=== PATIENT | male | born 2000 | race Caucasian/White ===

== ENCOUNTER 2018-05-25 18:33 | Inpatient (IN) ==
[2018-05-26] MEDS: Morphine Inj 4 MG/ML Vial IV.PUSH PRN ×4 (05:41→20:35)
[2018-05-26] MEDS ORDERED: Lidocaine 1%/Epinephrine 1:100,000 Inj 30 ML Vial ONE (07:13)
[2018-05-26] MEDS ORDERED: Thrombin Topical Soln 5,000 UNIT Vial TOPICAL ONE (07:13)
[2018-05-26] MEDS ORDERED: Gelatin Size 100 Topical Foam ONE (07:13)
[2018-05-26] MEDS ORDERED: Propofol Inj 500 MG/50 ML Vial ONE (07:24)
[2018-05-26] MEDS ORDERED: HYDROmorphone PF Inj 2 MG/ML Vial ONE ×2 (07:25→08:21)
--- NOTE | 2018-05-26 07:27 | P.CONNS ---
History of Present Illness Service: Trauma Alligator Primary Care Provider: UNKNOWN Chief Complaint: Trampoline, C6/7 jumped facet History of Present Illness: 17yoM doing backflips on trampoline last evening 6pm, when he felt a pop and crack with tingling/burning down right arm. Pain has improved with morphine, feels weak in right arm but subjectively is baseline strong. Imaging shows C6/ 7 jumped facet with a fracture. Plan for surgery this 8AM. Has been maintained in spine precautions since arrival this morning at 4:45, delayed due to multiple traumas last evening. [facility] - History History Provided By: Patient - Medical History Medical History: Medical History (Last Updated 05/25/18 @ 18:45 by Pari Sanz, RN) Patient denies medical problems - Surgical History Surgical History: Surgical History (Last Updated 05/25/18 @ 18:45 by Pari Sanz, TORI) H/O knee surgery - Tobacco History Second Hand Smoke Exposure: Yes Tobacco Use In Past 30 Days: Yes Smoking Status: Light tobacco smoker Tobacco Type: Cigarettes, Cigars, E-Cigarettes - Alcohol History How Often Do You Have a Drink Containing Alcohol: 2 to 4 times a month - Substance Use History Substance History: Active Abuse - Substance Use Type Marijuana Status: Active Route Used: Inhalation Frequency: casual daily smoking Reason for Use: Calm Down, Feels Good, Get High Comment: Patient ask that this information not be shared with parents. - Travel History Recent Travel in the [place] Within the Last 8 Weeks: No Recent Travel Out of the Country Within the Last 8 Weeks: No - Immunization History Tetanus Immunization: <5 Years Hx Influenza Vaccine This Season: Yes Medications and Allergies Active Medications: Active Medications Morphine Sulfate (Morphine Inj) 2 mg IV.PUSH Q1H PRN PRN Reason: PAIN 1-10 Last Admin: 05/26/18 05:41 Dose: 2 mg Allergies Allergy/AdvReac Type Severity Reaction Status Date / Time Penicillins Allergy Severe Itching, Verified 05/25/18 18:44 Generalized Home Medications Medication Instructions Recorded Confirmed Type No Known Home Medications 05/25/18 05/25/18 History Exam Vital signs: Vital Signs 05/26/18 04:46 05/26/18 05:00 05/26/18 06:00 Temperature 98.3 F Pulse Rate 58 L 58 L 54 L Respiratory Rate 26 H 21 20 Blood Pressure 133/80 Pulse Oximetry 97 98 97 Intake & Output 05/25/18 05/26/18 05/26/18 18:59 06:59 18:59 Intake Total 0 / 0 Balance 0 / 0 Weight 67.6 kg Intake: Oral 0 / 0 Other: Date of Last Bowel Movement 05/25/18 Weight On Admission 67.6 kg Narrative: A&O x 3 CN II-XII intact Motor 5/5 UE/LE sensation intact throughout Assessment and Plan - Plan 17yoM with C6/7 jumped facet unilateral (right) with fracture and rotatory subluxation. Plan: Posterior cervical decompression and fusion in traction on a horseshoe. Monitoring, Cognitive Kinetics aware Discussed with mother and patient risks of surgery including paralysis and weakness of right arm. Consented
[2018-05-26] MEDS ORDERED: Acetaminophen 325 MG Tablet PO PRN (08:00)
--- NOTE | 2018-05-26 08:07 | P.CONCC ---
History of Present Illness Service: Critical care medicine Consult date: 05/26/18 Requesting Physician: Bo Ruiz Reason for Consult: Acute neurological injury Primary Care Provider: UNKNOWN Chief Complaint: Trampoline, C6/7 jumped facet History of Present Illness: This 17-year-old man was playing with some of his friends on a trampoline when he flipped incorrectly and landed directly on his head. He felt something "pop " at the time and developed severe pain radiating down his right arm to his right index finger. This pain is waxed and wane and on my examination he is already received some analgesia. Additionally, he developed severe right posterior lateral rib pain which has persisted. Plain film x-rays of the chest shows fully expanded lungs without pneumothorax and no evidence of rib fractures. He has been hemodynamically stable and his lab studies are normal with the exception of a minimally elevated creatinine at 1.1. There was no loss of consciousness with the injury and oriented throughout. He was transferred from the [facility] emergency department to the intensive surgical care unit at the [facility] earlier this morning. I have discussed the injury with the patient and his mother at the bedside. Hct 44, INR 1.1, Plts 348,000. Review of Systems Patient complains of numbness involving his right index finger and pain shooting down his right arm which has been alleviated minimally with analgesia. He still complains of right posterior lateral rib pain. No shortness of breath except it does hurt his ribs to take a deep breath or cough. [facility] - History History Provided By: Patient - Medical History Medical History: Medical History (Last Updated 05/25/18 @ 18:45 by Pari Sanz RN) Patient denies medical problems - Surgical History Surgical History: Surgical History (Last Updated 05/25/18 @ 18:45 by Pari Sanz RN) H/O knee surgery - Tobacco History Second Hand Smoke Exposure: Yes Tobacco Use In Past 30 Days: Yes Smoking Status: Light tobacco smoker Tobacco Type: Cigarettes, Cigars, E-Cigarettes - Alcohol History How Often Do You Have a Drink Containing Alcohol: 2 to 4 times a month - Substance Use History Substance History: Active Abuse - Substance Use Type Marijuana Status: Active Route Used: Inhalation Frequency: casual daily smoking Reason for Use: Calm Down, Feels Good, Get High Comment: Patient ask that this information not be shared with parents. - Travel History Recent Travel in the [place] Within the Last 8 Weeks: No Recent Travel Out of the Country Within the Last 8 Weeks: No - Immunization History Tetanus Immunization: <5 Years Hx Influenza Vaccine This Season: Yes Medications and Allergies Active Medications: Active Medications Morphine Sulfate (Morphine Inj) 2 mg IV.PUSH Q1H PRN PRN Reason: PAIN 1-10 Last Admin: 05/26/18 07:27 Dose: 2 mg Allergies Allergy/AdvReac Type Severity Reaction Status Date / Time Penicillins Allergy Severe Itching, Verified 05/25/18 18:44 Generalized Home Medications Medication Instructions Recorded Confirmed Type No Known Home Medications 05/25/18 05/25/18 History Physical Exam Vital signs: Vital Signs 05/26/18 04:46 05/26/18 05:00 05/26/18 06:00 Temperature 98.3 F Pulse Rate 58 L 58 L 54 L Respiratory Rate 26 H 21 20 Blood Pressure 133/80 Pulse Oximetry 97 98 97 05/26/18 06:21 05/26/18 07:00 Temperature Pulse Rate 50 L 55 L Respiratory Rate 15 20 Blood Pressure 121/74 128/79 Pulse Oximetry 97 99 Intake & Output 05/25/18 05/26/18 05/26/18 18:59 06:59 18:59 Intake Total 0 / 0 Balance 0 / 0 Weight 67.6 kg Intake: Oral 0 / 0 Other: Date of Last Bowel Movement 05/25/18 Weight On Admission 67.6 kg Narrative: General: Fully alert 17-year-old male in moderate distress from pain Head: Normal Neck: In cervical collar. Airway is widely patent with no obstructive noises Lungs: Clear bilaterally without wheezes or crackles. Comfortable respiratory pattern. Heart: Normal S1-S2, regular rate and rhythm, no murmur or rub, no JVD Abdomen: Soft, nontender, nondistended, no peritoneal irritation, no guarding, bowel sounds are active. Extremities: Without deformity. Warm, well-perfused. Neurological: Patient is alert and oriented x3 speech is clear and he is conversant. He moves 4 limbs to command and wiggles individual toes and fingers to command. Strength is 5/5 in legs. Hand grasp left hand 5/5, hand grasp right hand 4/5, limited by pain. Decreased sensation right index finger. Assessment and Plan - Assessment and Plan Plan: Assessment: 1. C6/C7 cervical spine injury, jumped facet. 2. Paresthesia right hand. Plan: 1. Hard cervical collar neck immobilization 2. Maintenance IV isotonic crystalloid 3. Pepcid for GI ulcer prophylaxis 4. Hold chemical DVT prophylaxis at this time because of need for surgical intervention 5. SCDs 6. Serial neurologic exam Overall impression: This gentleman is critically ill with an unstable cervical spine fracture and evidence of neurologic injury involving the right hand. The mechanism of injury is such that we do not suspect intra-abdominal injury or injuries remote from the neck but we will continue to survey for other problems. By my exam and review there is no reason he cannot go immediately to the operating room now for reduction and stabilization of his C6/C7 spine disruption. Critical care time 45 minutes including lengthy discussion with patient and his mother.
[2018-05-26] MEDS ORDERED: ceFAZolin 2 GM Premix Inj 2 GM/50 ML PIGGYBACK IV.SIG ONE (09:15)
--- NOTE | 2018-05-26 09:52 | MH ---
cc: Ayaz Patton MD DATE OF ADMISSION: 05/26/2018 CHIEF COMPLAINT: C6-C7 injury, trauma transfer from [place]. HISTORY OF PRESENT ILLNESS: The patient is a 17-year-old male, who was at a trampoline park, when he landed directly on his head after jumping on a trampoline. The patient said he felt something pop, and had severe pain radiating down his right arm at that time. The patient was transferred to [facility], and underwent evaluation including a CT scan of the neck, which did show a C6-C7 fracture/dislocation that was felt to be unstable. The patient was accepted by Dr. Ruiz of neurosurgery to be transferred to [facility] for evaluation, management, and likely urgent operative repair. The patient was transferred in a cervical collar and bedrest. Critical care was consulted. Trauma surgery service was asked to admit the patient. REVIEW OF SYSTEMS: The patient complains of numbness involving the right index finger and down his right arm, which has improved since admission. PAST SURGICAL HISTORY: None. PAST MEDICAL HISTORY: History of knee surgery. PAST MEDICAL HISTORY: None. ALLERGIES: PENICILLINS. HOME MEDICATIONS: None. SOCIAL HISTORY: Occasionally smokes cigarettes, occasionally uses marijuana, occasionally uses alcohol. FAMILY HISTORY: Reviewed in the chart, noncontributory. PHYSICAL EXAMINATION: VITAL SIGNS: Temperature 93.8 degrees, pulse rate 58, blood pressure 133/80, O2 saturation 97%. GENERAL: The patient is a thin, male in no acute distress. HEENT: Head is normocephalic, atraumatic. Pupils are round and reactive to light. Sclerae are anicteric. Oral cavity is clear. Mid face is stable. NECK: Cervical collar is in place. Trachea is midline. CHEST: Chest wall stable without deformity. Bilateral breath sounds clear to auscultation bilaterally. HEART: Regular rate and rhythm. No murmurs. ABDOMEN: Soft and nontender to palpation. No organomegaly. No ascites. No seatbelt sign. PELVIC: Stable without deformity. EXTREMITIES: No deformity in 4 extremities, warm and perfused, intact Peripheral pulses intact. BACK: No thoracic or lumbar tenderness. NEUROLOGIC: The patient is GCS 15. Awake, alert and oriented, moving all extremities equally without deficit. He has sensation and motor intact x4 extremities. Cranial nerves are grossly intact. LABORATORY DATA: Hemoglobin 14.5. IMAGING: A CT scan of the patient's cervical spine does show a fracture/dislocation at C6-C7. IMPRESSION AND PLAN: The patient is a 17-year-old male, status post unstable cervical spine fracture, neurologically intact. The patient is proceeding to the operating room urgently this morning with Dr. Ruiz for stabilization of his fracture. We will continue supportive care and appropriate analgesic control, as well as occupational therapy and physical therapy for continued rehabilitation. Also discharge planning. After discussion with Dr. Ruiz, the patient will have a halo in place for likely a few months, and will need appropriate case-management input for assistance after discharge. Ayaz Patton MD AWG/rh , 09:14 AM , 09:22 AM
[2018-05-26] MEDS ORDERED: fentaNYL Citrate Inj 100 MCG/2 ML Ampul ONE (11:18)
[2018-05-26] MEDS: Docusate Sodium 100 MG Capsule PO SCH ×2 (11:24→20:35)
[2018-05-26] MEDS: Pantoprazole Inj 40 MG Vial IV.PUSH SCH (11:24)
--- NOTE | 2018-05-26 11:51 | XR ---
EXAM DATE: 05/26/2018 11:47 AM EST AGE/SEX: 17 years / Male INDICATIONS: Post-op C4 to T2 posterior cervical fusion. CLINICAL DATA: This is the patient's subsequent encounter. Patient reports that signs and symptoms h ave been present for 2 days and indicates a pain score of Nonresponsive. MEDICAL/SURGICAL HISTORY: Non-responsive. Non-responsive. COMPARISON: No prior exams available for comparison. CONCLUSION: Fluoroscopic images during posterior fusion C4 extending inferiorly into the upper thoracic spine at T2 level. Electronically signed by: Nicko Marsh MD Board Certified Radiologist 05/26/2018 11:50 AM EST
--- NOTE | 2018-05-26 15:35 | P.PNCC ---
Subjective Brief History: The patient is a 17-year-old male, who was at a trampoline park, when he landed directly on his head after jumping on a trampoline. The patient said he felt something pop, and had severe pain radiating down his right arm. On the scene, apparently his friends tried to twist his neck and "pop" it back in place. Patient was admitted through [place] [facility] evaluated found to have C6-C7 locked facet with fracture that was deemed unstable and therefore is transferred to our institution for further care. Patient is evaluated by neurosurgery and is taken to the operating room for cervical fusion 24 Hour Review/Hospital Course: 05/26/2018 Patient status post cervical instrumentation for C6-C7 jumped facet. Patient is awake alert oriented Neurologically grossly intact he does not have any radiating pain and has bilateral equal motoric strength 5 out of 5 in the arms and 5 out of 5 in the legs. Normal bilateral executive sales manager and no lateralization Normal deep tendon reflexes no pathologic reflexes Hemodynamically stable Bilateral breath sounds Plan Advance to diet Activity as tolerated with aggressive PT OT Do not administer anticoagulants even prophylactically at this time Adjust pain medication regimen Objective Vital Signs / I&O: Vital Signs 05/26/18 04:46 05/26/18 05:00 05/26/18 06:00 Temperature 98.3 F Pulse Rate 58 L 58 L 54 L Respiratory Rate 26 H 21 20 Blood Pressure 133/80 Pulse Oximetry 97 98 97 05/26/18 06:21 05/26/18 07:00 05/26/18 11:00 Temperature Pulse Rate 50 L 55 L 76 Respiratory Rate 15 20 16 Blood Pressure 121/74 128/79 129/59 L Pulse Oximetry 97 99 100 05/26/18 12:25 05/26/18 12:45 05/26/18 13:00 Temperature 97.5 F L Pulse Rate 83 76 70 Respiratory Rate 14 9 L 17 Blood Pressure 121/66 119/64 113/62 Pulse Oximetry 100 100 100 05/26/18 13:15 05/26/18 13:30 05/26/18 13:45 Temperature 97.7 F Pulse Rate 73 66 69 Respiratory Rate 12 18 16 Blood Pressure 115/60 109/55 L 111/62 Pulse Oximetry 95 92 L 96 Intake & Output 05/25/18 05/26/18 05/26/18 18:59 06:59 18:59 Intake Total 0 / 0 1550 / 1550 Output Total 1300 / 1300 Balance 0 / 0 250 / 250 Weight 67.6 kg Intake: IV 50 / 50 Ancef 2 GM Premix Inj 2 gm In 50 / 50 50 ml @ 100 mls/hr IV.SIG ONCE ONE Rx#:[id number] Oral 0 / 0 Anesthesia Amount 1500 / 1500 Output: Estimated Blood Loss 200 / 200 Urine Amount (Catheter) 1100 / 1100 Indwelling Urethral Catheter 1100 / 1100 Other: Date of Last Bowel Movement 05/25/18 05/25/18 Weight On Admission 67.6 kg Imaging: Impressions Cervical Spine X-Ray 05/26/18 00:00 CONCLUSION: Fluoroscopic images during posterior fusion C4 extending inferiorly into the upper thoracic spine at T2 level. Assessment and Plan Attestation: Critical care time 32 minutes
--- NOTE | 2018-05-26 15:46 | P.OP ---
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 Procedure: Patient brought to [facility] OR and the procedure done under general anesthesia. He was placed in [place] 3-pin headrest, then turned carefully after taking baseline SSEPs. Head fixated in three-pin fixation, all pressure points padded. SSEP/MEPs stable and intact. Posterior neck clipped then prepped and draped in usual sterile fashion. Incision taken from C4 to T2 down the spinous processes with a subperiosteal dissection bilaterally to the facets. Right C6/ 7 jumped facet located. Screws placed (pedicle screws: T1 26mm, T2 28mm placed using AP fluoro, then confirmed with lateral views and left C4-5-6 lateral mass screws of 12mm and right C4-5 lateral mass screws placed). Right C6 laminar fracture elevated and superior facet of C7 on right drilled and removed to facilitate reduction of fracture. This was stabilized with 2, 90mm rods which were secured with set screws and final tightened. Wound copiously irrigated with antibiotic irrigation, then closed in layers over a 7-flat channel drain using 0 and 2-0 Vicryl for deep fascia, and inverted 3-0 Vicryl for subcutaneous followed by fam for skin. Sterile dressings applied. Patient taken out of pins, returned supine in stable condition. All monitoring remained intact throughout the procedure. There were no periprocedural complications. All sponge and needle counts correct. Dr. Ruiz present and scrubbed for entire procedure. Patient taken extubated to recovery where he was found to move all extremities with full strength.
--- NOTE | 2018-05-26 21:46 | CT ---
EXAM DATE: 05/26/2018 9:20 PM EST AGE/SEX: 17 years / Male INDICATIONS: Check alignment after hardware fixation. CLINICAL DATA: This is the patient's initial encounter. Patient reports that signs and symptoms have been present for 2 days and indicates a pain score of 7/10. MEDICAL/SURGICAL HISTORY: . C6-C7 fracture. . Fixator. RADIATION DOSE: 22.52 CTDI (mGy) COMPARISON: [facility], CT CERVICAL SPINE W/O CONTRAST, 05/25/2018. . TECHNIQUE: Contiguous axial images were obtained using helical multirow detector technique. The vol umetric data was post-processed with multiplanar reconstruction in oblique axial, sagittal, and coron al planes. Using automated exposure control and adjustment of the mA and/or kV according to patient s ize, radiation dose was kept as low as reasonably achievable to obtain optimal diagnostic quality hannah ges. DICOM format image data is available electronically for review and comparison. FINDINGS: There is posterior fusion with screws in C4 and C5 posteriorly and T1 and T2 posteriorly together wit h bilateral jose fixation between these levels. The previous spondylolisthesis at C6-7 has been reduce d. Posterior element fractures are again noted predominantly on the right. A drain is present in the soft tissues together with some soft tissue air presumably related to recent surgery. CONCLUSION: 1. Posterior fixation as above. Interval reduction of anterolisthesis seen previously at C6-7. Jumpe d facet has also been reduced. Again seen are posterior element fractures at C6-7. Electronically signed by: Javon Wei MD Board Certified Radiologist 05/26/2018 9:45 PM EST
[2018-05-27 03:52] LABS: Baso % (Auto) 0.2 % (0.0-2.0); Eos % (Auto) 0.1 % (0.0-4.0); Hematocrit 34.3 % (39.0-51.0); Hemoglobin 11.7 gm/dL (13.0-17.0); Lymph # (Auto) 1.9 th/mm3 (1.0-4.8); Lymph % (Auto) 18.8 % (9.0-44.0); Mean Corpuscular HGB Conc 34.1 % (32.0-36.0); Mean Corpuscular Hemoglobin 29.3 pg (27.0-34.0); Mean Corpuscular Volume 85.7 fL (80.0-100.0); Mean Platelet Volume 8.5 fL (7.0-11.0); Mono # (Auto) 1.4 th/mm3 (0.0-0.9); Neut # (Auto) 6.6 th/mm3 (1.8-7.7); Neut % (Auto) 66.9 % (16.0-70.0); Platelet Count 285 th/mm3 (150-450); Red Cell Distribution Width 12.8 % (11.6-17.2); White Blood Count 9.9 th/mm3 (4.0-11.0)
[2018-05-27] MEDS ORDERED: Chlorhexidine Gluconate 2% 1 Pack (2 Cloths) TOPICAL PRN (04:00)
[2018-05-27 04:15] LABS: Albumin 3.4 g/dL (3.4-5.0); Anion Gap 6 meq/L (5-15); Aspartate Aminotransferase 21 U/L (15-39); Blood Urea Nitrogen 9 mg/dL (7-18); Calcium 8.2 mg/dL (8.5-10.1); Carbon Dioxide 29.4 meq/L (21.0-32.0); Chloride 107 meq/L (98-107); Glomerular Filtration Rate Greater Than 89 mL/min (>89); Glucose,Random 113 mg/dL (74-106); Potassium 4.2 meq/L (3.5-5.1); Sodium 142 meq/L (136-145)
[2018-05-27 04:18] LABS: Alanine Aminotransferase 14 U/L (9-52); Alkaline Phosphatase 52 U/L (45-117); Total Protein 6.1 g/dL (6.4-8.2)
[2018-05-27] MEDS: Chlorhexidine Gluconate 2% 1 Pack (2 Cloths) TOPICAL SCH (05:07)
[2018-05-27] MEDS: Morphine Inj 4 MG/ML Vial IV.PUSH PRN ×2 (05:42→23:19)
--- NOTE | 2018-05-27 07:28 | P.PNCC ---
Subjective Subjective Remarks/Hospital Course: This 17-year-old man was playing with some of his friends on a trampoline when he flipped incorrectly and landed directly on his head. He felt something "pop " at the time and developed severe pain radiating down his right arm to his right index finger. This pain is waxed and wane and on my examination he is already received some analgesia. Additionally, he developed severe right posterior lateral rib pain which has persisted. Plain film x-rays of the chest shows fully expanded lungs without pneumothorax and no evidence of rib fractures. He has been hemodynamically stable and his lab studies are normal with the exception of a minimally elevated creatinine at 1.1. There was no loss of consciousness with the injury and oriented throughout. He was transferred from the [facility] emergency department to the intensive surgical care unit at the [facility] earlier this morning. I have discussed the injury with the patient and his mother at the bedside. Hct 44, INR 1.1, Plts 348,000. 05/27: Status post C4-T2 fusion for repair of C6/C7 facet jump injury. Extubated following surgery and airway widely patent. Some persistent defect and sensation right index finger. Rib pain when taking a deep breath. Swallowing well, protects airway. Objective Vital Signs / I&O: Vital Signs 05/26/18 08:00 05/26/18 08:04 05/26/18 11:00 Temperature Pulse Rate 58 L 61 76 Respiratory Rate 26 H 22 16 Blood Pressure 131/89 129/59 L Pulse Oximetry 100 100 100 05/26/18 12:04 05/26/18 12:05 05/26/18 12:25 Temperature 97.5 F L Pulse Rate 77 83 Respiratory Rate 14 Blood Pressure 113/57 L 121/66 Pulse Oximetry 100 100 05/26/18 12:30 05/26/18 12:45 05/26/18 13:00 Temperature Pulse Rate 77 76 68 Respiratory Rate 13 9 L 30 H Blood Pressure 116/60 119/64 113/62 Pulse Oximetry 100 100 100 05/26/18 13:01 05/26/18 13:15 05/26/18 13:30 Temperature Pulse Rate 97 H 71 67 Respiratory Rate 20 13 16 Blood Pressure 113/62 115/60 109/55 L Pulse Oximetry 100 94 L 92 L 05/26/18 13:45 05/26/18 14:00 05/26/18 14:15 Temperature 97.7 F Pulse Rate 67 70 65 Respiratory Rate 13 0 L 0 L Blood Pressure 111/62 115/66 106/62 Pulse Oximetry 95 96 94 L 05/26/18 14:30 05/26/18 14:45 05/26/18 15:00 Temperature Pulse Rate 66 63 63 Respiratory Rate 0 L 0 L 0 L Blood Pressure 114/66 113/63 108/55 L Pulse Oximetry 95 94 L 95 05/26/18 15:15 05/26/18 15:30 05/26/18 15:45 Temperature 98.0 F Pulse Rate 61 60 60 Respiratory Rate 0 L 11 L 11 L Blood Pressure 105/58 L 106/59 L 103/64 Pulse Oximetry 95 95 95 05/26/18 16:00 05/26/18 16:15 05/26/18 16:30 Temperature Pulse Rate 90 58 L 68 Respiratory Rate 22 22 14 Blood Pressure 113/63 112/69 112/69 Pulse Oximetry 97 97 97 05/26/18 16:45 05/26/18 17:00 05/26/18 17:15 Temperature Pulse Rate 59 L 60 58 L Respiratory Rate 49 H 74 H 106 H Blood Pressure 118/66 112/63 114/65 Pulse Oximetry 98 97 97 05/26/18 17:30 05/26/18 17:45 05/26/18 18:00 Temperature Pulse Rate 64 55 L 58 L Respiratory Rate 60 H 62 H 32 H Blood Pressure 116/68 115/68 117/72 Pulse Oximetry 97 97 97 05/26/18 18:15 05/26/18 18:30 05/26/18 19:00 Temperature Pulse Rate 63 80 82 Respiratory Rate 39 H 137 H 110 H Blood Pressure 118/72 125/79 160/94 H Pulse Oximetry 98 100 98 05/26/18 19:15 05/26/18 19:30 05/26/18 20:00 Temperature 98.2 F Pulse Rate 76 80 84 Respiratory Rate 92 H 114 H 24 Blood Pressure 131/74 134/77 123/69 Pulse Oximetry 100 98 99 05/26/18 20:26 05/26/18 20:41 05/26/18 21:00 Temperature Pulse Rate 71 66 Respiratory Rate 20 23 21 Blood Pressure 118/65 Pulse Oximetry 98 97 05/26/18 21:15 05/26/18 21:26 05/26/18 22:00 Temperature Pulse Rate 75 80 Respiratory Rate 23 25 H 19 Blood Pressure 126/77 Pulse Oximetry 99 98 05/26/18 22:26 05/26/18 23:00 05/26/18 23:26 Temperature Pulse Rate 83 71 65 Respiratory Rate 18 20 23 Blood Pressure 119/70 110/57 L Pulse Oximetry 98 97 97 05/27/18 00:00 05/27/18 00:26 05/27/18 01:00 Temperature 98.4 F Pulse Rate 71 65 66 Respiratory Rate 21 30 H 25 H Blood Pressure 108/57 L Pulse Oximetry 97 96 96 05/27/18 01:26 05/27/18 02:00 05/27/18 02:26 Temperature Pulse Rate 64 64 62 Respiratory Rate 27 H 23 20 Blood Pressure 102/51 L 108/54 L Pulse Oximetry 95 96 97 05/27/18 02:40 05/27/18 03:00 05/27/18 03:26 Temperature Pulse Rate 62 62 Respiratory Rate 24 20 20 Blood Pressure 107/60 Pulse Oximetry 96 98 05/27/18 04:00 05/27/18 04:26 05/27/18 05:00 Temperature 98.1 F Pulse Rate 74 73 61 Respiratory Rate 32 H 24 20 Blood Pressure 116/64 Pulse Oximetry 100 100 97 05/27/18 05:07 Temperature Pulse Rate Respiratory Rate 24 Blood Pressure Pulse Oximetry Intake & Output 05/26/18 05/27/18 05/27/18 18:59 06:59 18:59 Intake Total 1550 / 1550 891 / 891 Output Total 1670 / 1670 Balance -120 / -120 891 / 891 Intake: IV 50 / 50 891 / 891 NS + KCl 20 mEq Inj 1,000 ML @ 891 / 891 100 mls/hr IV.CONT .Q10H YVONNE Rx #:[id number] Ancef 2 GM Premix Inj 2 gm In 50 / 50 50 ml @ 100 mls/hr IV.SIG ONCE ONE Rx#:[id number] Anesthesia Amount 1500 / 1500 Output: Estimated Blood Loss 200 / 200 Urine Amount (Catheter) 1400 / 1400 Indwelling Urethral Catheter 1400 / 1400 Wound Drainage 70 / 70 # 1 Back 70 / 70 Other: Date of Last Bowel Movement 05/25/18 05/25/18 Result Diagrams: 05/27/18 03:19 05/27/18 03:19 Objective Remarks: Narrative: General: Alert 17-year-old male Head: Normal Neck: In hard cervical collar. Airway is widely patent with no obstructive noises Lungs: Clear bilaterally without wheezes or crackles. Comfortable respiratory pattern, restricted minimally by rib pain. Heart: Normal S1-S2, regular rate and rhythm, no murmur or rub, no JVD Abdomen: Soft, nontender, nondistended, no peritoneal irritation, no guarding, bowel sounds are present. Extremities: Without deformity. Warm, well-perfused. Neurological: Patient is alert and oriented x3 speech is clear and he is conversant. He moves 4 limbs to command and wiggles individual toes and fingers to command. Some residual numbness right index finger. Assessment and Plan - Assessment and Plan Plan: Assessment: 1. C6/C7 cervical spine injury, jumped facet -> C4-T2 spinal fusion 2. Paresthesia right hand. Plan: 1. Hard cervical collar neck immobilization 2. Maintenance IV isotonic crystalloid, advance diet 3. Pepcid for GI ulcer prophylaxis 4. Chemical DVT prophylaxis per neurosurgical service 5. SCDs 6. Serial neurologic exam 7. Mobilization with physical therapy Overall impression: This gentleman is critically ill with an unstable cervical spine fracture and evidence of neurologic injury involving the right hand. The mechanism of injury is such that we do not suspect intra-abdominal injury or injuries remote from the neck but we will continue to survey for other problems. He is status post cervical spine repair with stable hemodynamics and respiratory function.
[2018-05-27] MEDS: Pantoprazole Inj 40 MG Vial IV.PUSH SCH (08:21)
[2018-05-27] MEDS: Docusate Sodium 100 MG Capsule PO SCH ×2 (08:22→20:27)
--- NOTE | 2018-05-27 11:10 | P.PNNS ---
Subjective Interval history: 17-year-old man was playing with some of his friends on a trampoline when he flipped incorrectly and landed directly on his head. He felt something "pop" at the time and developed severe pain radiating down his right arm to his right index finger. This pain is waxed and wane and on my examination he is already received some analgesia. Additionally, he developed severe right posterior lateral rib pain which has persisted. Plain film x-rays of the chest shows fully expanded lungs without pneumothorax and no evidence of rib fractures. He has been hemodynamically stable and his lab studies are normal with the exception of a minimally elevated creatinine at 1.1. There was no loss of consciousness with the injury and oriented throughout. He was transferred from the [facility] emergency department to the intensive surgical care unit at the [facility] earlier this morning. I have discussed the injury with the patient and his mother at the bedside. Hct 44, INR 1.1, Plts 348,000. 05/27: Status post C4-T2 fusion for repair of C6/C7 facet jump injury. Extubated following surgery Douing well some right shoulder pain overnight Physical Exam Vital signs: Vital Signs 05/26/18 12:04 05/26/18 12:05 05/26/18 12:25 Temperature 97.5 F L Pulse Rate 77 83 Respiratory Rate 14 Blood Pressure 113/57 L 121/66 Pulse Oximetry 100 100 05/26/18 12:30 05/26/18 12:45 05/26/18 13:00 Temperature Pulse Rate 77 76 68 Respiratory Rate 13 9 L 30 H Blood Pressure 116/60 119/64 113/62 Pulse Oximetry 100 100 100 05/26/18 13:01 05/26/18 13:15 05/26/18 13:30 Temperature Pulse Rate 97 H 71 67 Respiratory Rate 20 13 16 Blood Pressure 113/62 115/60 109/55 L Pulse Oximetry 100 94 L 92 L 05/26/18 13:45 05/26/18 14:00 05/26/18 14:15 Temperature 97.7 F Pulse Rate 67 70 65 Respiratory Rate 13 0 L 0 L Blood Pressure 111/62 115/66 106/62 Pulse Oximetry 95 96 94 L 05/26/18 14:30 05/26/18 14:45 05/26/18 15:00 Temperature Pulse Rate 66 63 63 Respiratory Rate 0 L 0 L 0 L Blood Pressure 114/66 113/63 108/55 L Pulse Oximetry 95 94 L 95 05/26/18 15:15 05/26/18 15:30 05/26/18 15:45 Temperature 98.0 F Pulse Rate 61 60 60 Respiratory Rate 0 L 11 L 11 L Blood Pressure 105/58 L 106/59 L 103/64 Pulse Oximetry 95 95 95 05/26/18 16:00 05/26/18 16:15 05/26/18 16:30 Temperature Pulse Rate 90 58 L 68 Respiratory Rate 22 22 14 Blood Pressure 113/63 112/69 112/69 Pulse Oximetry 97 97 97 05/26/18 16:45 05/26/18 17:00 05/26/18 17:15 Temperature Pulse Rate 59 L 60 58 L Respiratory Rate 49 H 74 H 106 H Blood Pressure 118/66 112/63 114/65 Pulse Oximetry 98 97 97 05/26/18 17:30 05/26/18 17:45 05/26/18 18:00 Temperature Pulse Rate 64 55 L 58 L Respiratory Rate 60 H 62 H 32 H Blood Pressure 116/68 115/68 117/72 Pulse Oximetry 97 97 97 05/26/18 18:15 05/26/18 18:30 05/26/18 19:00 Temperature Pulse Rate 63 80 82 Respiratory Rate 39 H 137 H 110 H Blood Pressure 118/72 125/79 160/94 H Pulse Oximetry 98 100 98 05/26/18 19:15 05/26/18 19:30 05/26/18 20:00 Temperature 98.2 F Pulse Rate 76 80 84 Respiratory Rate 92 H 114 H 24 Blood Pressure 131/74 134/77 123/69 Pulse Oximetry 100 98 99 05/26/18 20:26 05/26/18 20:41 05/26/18 21:00 Temperature Pulse Rate 71 66 Respiratory Rate 20 23 21 Blood Pressure 118/65 Pulse Oximetry 98 97 05/26/18 21:15 05/26/18 21:26 05/26/18 22:00 Temperature Pulse Rate 75 80 Respiratory Rate 23 25 H 19 Blood Pressure 126/77 Pulse Oximetry 99 98 05/26/18 22:26 05/26/18 23:00 05/26/18 23:26 Temperature Pulse Rate 83 71 65 Respiratory Rate 18 20 23 Blood Pressure 119/70 110/57 L Pulse Oximetry 98 97 97 05/27/18 00:00 05/27/18 00:26 05/27/18 01:00 Temperature 98.4 F Pulse Rate 71 65 66 Respiratory Rate 21 30 H 25 H Blood Pressure 108/57 L Pulse Oximetry 97 96 96 05/27/18 01:26 05/27/18 02:00 05/27/18 02:26 Temperature Pulse Rate 64 64 62 Respiratory Rate 27 H 23 20 Blood Pressure 102/51 L 108/54 L Pulse Oximetry 95 96 97 05/27/18 02:40 05/27/18 03:00 05/27/18 03:26 Temperature Pulse Rate 62 62 Respiratory Rate 24 20 20 Blood Pressure 107/60 Pulse Oximetry 96 98 05/27/18 04:00 05/27/18 04:26 05/27/18 05:00 Temperature 98.1 F Pulse Rate 74 73 61 Respiratory Rate 32 H 24 20 Blood Pressure 116/64 Pulse Oximetry 100 100 97 05/27/18 05:07 05/27/18 05:26 05/27/18 06:00 Temperature Pulse Rate 66 58 L Respiratory Rate 24 18 20 Blood Pressure 111/58 L Pulse Oximetry 98 98 05/27/18 06:26 05/27/18 07:00 05/27/18 07:26 Temperature Pulse Rate 71 58 L 59 L Respiratory Rate 23 27 H 30 H Blood Pressure 111/58 L 106/58 L Pulse Oximetry 99 98 98 05/27/18 07:44 Temperature Pulse Rate Respiratory Rate 18 Blood Pressure Pulse Oximetry Intake & Output 05/26/18 05/27/18 05/27/18 18:59 06:59 18:59 Intake Total 1550 / 1550 1371 / 1371 Output Total 1670 / 1670 1065 / 1065 Balance -120 / -120 306 / 306 Intake: IV 50 / 50 891 / 891 NS + KCl 20 mEq Inj 1,000 ML @ 891 / 891 100 mls/hr IV.CONT .Q10H YVONNE Rx #:[id number] Ancef 2 GM Premix Inj 2 gm In 50 / 50 50 ml @ 100 mls/hr IV.SIG ONCE ONE Rx#:[id number] Oral 480 / 480 Anesthesia Amount 1500 / 1500 Output: Estimated Blood Loss 200 / 200 Urine Amount (Catheter) 1400 / 1400 975 / 975 Indwelling Urethral Catheter 1400 / 1400 975 / 975 Wound Drainage 70 / 70 90 / 90 # 1 Back Other: Date of Last Bowel Movement 05/25/18 05/25/18 - Constitutional mild distress, moderate distress Comments: Some mild right shoulder pain with numbness radiating into the thumb and index finger - Routine HEENT Exam Head: Present: normocephalic, atraumatic Eye: Present: EOMI, PERRL, normal accommodation ENT: Present: mucous membranes moist, oropharynx clear, external ear normal Comments: Cervical collar in place - Routine Neck Exam Present: supple, trachea midline - Routine Respiratory Exam Present: CTA bilaterally - Routine Abdominal Exam Present: soft, normoactive bowel sounds - Routine Extremities Exam Comments: Negative clubbing, cyanosis or edema - Routine Neurological Exam Present: alert, oriented X3, CN II-XII intact, sensory deficit, normal reflexes , moving all extremities, normal tone, vision grossly intact, hearing grossly intact, normal speech Numbness in C6 distribution on the right - Detailed Neurological Exam: Coma Scale Eye Opening: Spontaneous Verbal Response: Oriented Motor Response: Obey commands Clyde Coma Scale Total: 15 - Routine Psychiatric Exam Present: normal affect, normal thought process, cooperative - Urinary Catheter Management Indwelling Urethral Catheter Cath placed during this visit: yes Reason for continuing: Hourly intake/output Insertion date: 05/26/18 Insertion time: 08:20 Assessment and Plan - Plan POD#1 17yoM with C6/7 jumped facet unilateral (right) with fracture and rotatory subluxation. Now, status post C4-T2 fusion for repair of C6/C7 facet jump injury. Extubated following surgery and airway wide cont. SERGIO drain OOB to chair Regular diet PT/OT Rehab Consult Discharge planning OK to transfer to floor
--- NOTE | 2018-05-27 12:20 | P.PNCC ---
Subjective Brief History: The patient is a 17-year-old male, who was at a trampoline park, when he landed directly on his head after jumping on a trampoline. The patient said he felt something pop, and had severe pain radiating down his right arm. On the scene, apparently his friends tried to twist his neck and "pop" it back in place. Patient was admitted through [place] [facility] evaluated found to have C6-C7 locked facet with fracture that was deemed unstable and therefore is transferred to our institution for further care. Patient is evaluated by neurosurgery and is taken to the operating room for cervical fusion 1/2 status post neurosurgical procedure in the OR Neuro intact complains of slight right shoulder pain He has been ambulating with physical therapy His pain is adequately controlled We will transfer him to floor 24 Hour Review/Hospital Course: 05/26/2018 Patient status post cervical instrumentation for C6-C7 jumped facet. Patient is awake alert oriented Neurologically grossly intact he does not have any radiating pain and has bilateral equal motoric strength 5 out of 5 in the arms and 5 out of 5 in the legs. 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 Normal deep tendon reflexes no pathologic reflexes Hemodynamically stable Bilateral breath sounds Plan Advance to diet Activity as tolerated with aggressive PT OT Do not administer anticoagulants even prophylactically at this time Adjust pain medication regimen Objective Vital Signs / I&O: Vital Signs 05/26/18 12:25 05/26/18 12:30 05/26/18 12:45 Temperature 97.5 F L Pulse Rate 83 77 76 Respiratory Rate 14 13 9 L Blood Pressure 121/66 116/60 119/64 Pulse Oximetry 100 100 100 05/26/18 13:00 05/26/18 13:01 05/26/18 13:15 Temperature Pulse Rate 68 97 H 71 Respiratory Rate 30 H 20 13 Blood Pressure 113/62 113/62 115/60 Pulse Oximetry 100 100 94 L 05/26/18 13:30 05/26/18 13:45 05/26/18 14:00 Temperature 97.7 F Pulse Rate 67 67 70 Respiratory Rate 16 13 0 L Blood Pressure 109/55 L 111/62 115/66 Pulse Oximetry 92 L 95 96 05/26/18 14:15 05/26/18 14:30 05/26/18 14:45 Temperature Pulse Rate 65 66 63 Respiratory Rate 0 L 0 L 0 L Blood Pressure 106/62 114/66 113/63 Pulse Oximetry 94 L 95 94 L 05/26/18 15:00 05/26/18 15:15 05/26/18 15:30 Temperature Pulse Rate 63 61 60 Respiratory Rate 0 L 0 L 11 L Blood Pressure 108/55 L 105/58 L 106/59 L Pulse Oximetry 95 95 95 05/26/18 15:45 05/26/18 16:00 05/26/18 16:15 Temperature 98.0 F Pulse Rate 60 90 58 L Respiratory Rate 11 L 22 22 Blood Pressure 103/64 113/63 112/69 Pulse Oximetry 95 97 97 05/26/18 16:30 05/26/18 16:45 05/26/18 17:00 Temperature Pulse Rate 68 59 L 60 Respiratory Rate 14 49 H 74 H Blood Pressure 112/69 118/66 112/63 Pulse Oximetry 97 98 97 05/26/18 17:15 05/26/18 17:30 05/26/18 17:45 Temperature Pulse Rate 58 L 64 55 L Respiratory Rate 106 H 60 H 62 H Blood Pressure 114/65 116/68 115/68 Pulse Oximetry 97 97 97 05/26/18 18:00 05/26/18 18:15 05/26/18 18:30 Temperature Pulse Rate 58 L 63 80 Respiratory Rate 32 H 39 H 137 H Blood Pressure 117/72 118/72 125/79 Pulse Oximetry 97 98 100 05/26/18 19:00 05/26/18 19:15 05/26/18 19:30 Temperature Pulse Rate 82 76 80 Respiratory Rate 110 H 92 H 114 H Blood Pressure 160/94 H 131/74 134/77 Pulse Oximetry 98 100 98 05/26/18 20:00 05/26/18 20:26 05/26/18 20:41 Temperature 98.2 F Pulse Rate 84 71 Respiratory Rate 24 20 23 Blood Pressure 123/69 118/65 Pulse Oximetry 99 98 05/26/18 21:00 05/26/18 21:15 05/26/18 21:26 Temperature Pulse Rate 66 75 Respiratory Rate 21 23 25 H Blood Pressure 126/77 Pulse Oximetry 97 99 05/26/18 22:00 05/26/18 22:26 05/26/18 23:00 Temperature Pulse Rate 80 83 71 Respiratory Rate 19 18 20 Blood Pressure 119/70 Pulse Oximetry 98 98 97 05/26/18 23:26 05/27/18 00:00 05/27/18 00:26 Temperature 98.4 F Pulse Rate 65 71 65 Respiratory Rate 23 21 30 H Blood Pressure 110/57 L 108/57 L Pulse Oximetry 97 97 96 05/27/18 01:00 05/27/18 01:26 05/27/18 02:00 Temperature Pulse Rate 66 64 64 Respiratory Rate 25 H 27 H 23 Blood Pressure 102/51 L Pulse Oximetry 96 95 96 05/27/18 02:26 05/27/18 02:40 05/27/18 03:00 Temperature Pulse Rate 62 62 Respiratory Rate 20 24 20 Blood Pressure 108/54 L Pulse Oximetry 97 96 05/27/18 03:26 05/27/18 04:00 05/27/18 04:26 Temperature 98.1 F Pulse Rate 62 74 73 Respiratory Rate 20 32 H 24 Blood Pressure 107/60 116/64 Pulse Oximetry 98 100 100 05/27/18 05:00 05/27/18 05:07 05/27/18 05:26 Temperature Pulse Rate 61 66 Respiratory Rate 20 24 18 Blood Pressure 111/58 L Pulse Oximetry 97 98 05/27/18 06:00 05/27/18 06:26 05/27/18 07:00 Temperature Pulse Rate 58 L 71 58 L Respiratory Rate 20 23 27 H Blood Pressure 111/58 L Pulse Oximetry 98 99 98 05/27/18 07:26 05/27/18 07:44 Temperature Pulse Rate 59 L Respiratory Rate 30 H 18 Blood Pressure 106/58 L Pulse Oximetry 98 Intake & Output 05/26/18 05/27/18 05/27/18 18:59 06:59 18:59 Intake Total 1550 / 1550 1371 / 1371 Output Total 1670 / 1670 1065 / 1065 Balance -120 / -120 306 / 306 Intake: IV 50 / 50 891 / 891 NS + KCl 20 mEq Inj 1,000 ML @ 891 / 891 100 mls/hr IV.CONT .Q10H YVONNE Rx #:[id number] Ancef 2 GM Premix Inj 2 gm In 50 / 50 50 ml @ 100 mls/hr IV.SIG ONCE ONE Rx#:[id number] Oral 480 / 480 Anesthesia Amount 1500 / 1500 Output: Estimated Blood Loss 200 / 200 Urine Amount (Catheter) 1400 / 1400 975 / 975 Indwelling Urethral Catheter 1400 / 1400 975 / 975 Wound Drainage / / # 1 Back 70 / 70 Other: Date of Last Bowel Movement 05/25/18 05/25/18 Result Diagrams: 05/27/18 03:19 05/27/18 03:19 Imaging: Impressions Cervical Spine CT 05/26/18 00:00 CONCLUSION: 1. Posterior fixation as above. Interval reduction of anterolisthesis seen previously at C6-7. Jumped facet has also been reduced. Again seen are posterior element fractures at C6-7. 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
--- NOTE | 2018-05-27 19:25 | P.CONREH ---
History of Present Illness Service: Physical medicine and rehabilitation Consult date: 05/27/18 Reason for Consult: Comprehensive rehabilitation evaluation Primary Care Provider: UNKNOWN Chief Complaint: C6/C7 cervical spine jumped facets History of Present Illness: Yasmany Gaxiola is a 17-year-old [id number] male admitted to [facility] 05/26/18 after doing back flips on a trampoline when he felt a pop and crack with tingling down the right arm. He was found to have C6/7 jumped facet unilateral (right) with fracture and rotatory subluxation. On 05/26/17 he underwent 05/26/18 C4-T2 posterior spinal fusion with reduction of C6-C7 listhesis. He is currently maintained in cervical collar. Review of Systems Constitutional: Denies fatigue, Denies headache(s) Eyes: Denies change in vision, Denies double vision Ears, Nose, Mouth, and Throat: Reports dizziness (Occasional dizziness), Reports neck pain, Denies abnormal hearing, Denies difficulty swallowing Cardiovascular: Reports other (Pain in his right ribs laterally), Denies chest pain Respiratory: Denies shortness of breath Gastrointestinal: Denies abdominal pain, Denies constipation, Denies nausea Genitourinary: Reports other ([place] in place) Musculoskeletal: Reports neck pain, Denies muscle weakness, Denies radiating pain into limb Skin/Breast: Denies rash Neurologic: Reports tingling/numbness/burning sensations (Numbness in the tip of the right finger otherwise intact) Psychiatric: Denies confusion Hematologic/Lymphatic: Denies easy bruising Allergic/Immunologic: Denies throat swelling PMFSH - History History Provided By: Patient - Medical History Medical History: Medical History (Last Reviewed 05/28/18 @ 16:10 by Haritha Hood MD) Patient denies medical problems - Surgical History Surgical History: Surgical History (Last Reviewed 05/28/18 @ 16:10 by Haritha Hood MD) H/O knee surgery - Family History Family History: Family History (Last Reviewed 05/28/18 @ 08:15 by Yanira Salazar) Other No pertinent family history - Tobacco History Second Hand Smoke Exposure: Yes Tobacco Use In Past 30 Days: Yes Smoking Status: Light tobacco smoker Tobacco Type: Cigarettes, Cigars, E-Cigarettes - Alcohol History How Often Do You Have a Drink Containing Alcohol: 2 to 4 times a month - Substance Use History Substance History: Past History - Substance Use Type Marijuana Status: Early Remission Route Used: Inhalation Frequency: casual daily smoking Reason for Use: Calm Down, Feels Good, Get High, Socialization Comment: Patient ask that this information not be shared with parents. - Travel History Recent Travel in the [place] Within the Last 8 Weeks: No Recent Travel Out of the Country Within the Last 8 Weeks: No - Immunization History Tetanus Immunization: <5 Years Hx Influenza Vaccine This Season: Yes Medications and Allergies Active Medications: Active Medications Acetaminophen (Tylenol) 650 mg PO Q6H PRN PRN Reason: TEMPERATURE > 102 F Hydrocodone Bitart/Acetaminophen ([place] 7.5/325) 1 tab PO Q4H PRN PRN Reason: Acute Pain Last Admin: 05/27/18 15:22 Dose: 1 tab Hydrocodone Bitart/Acetaminophen ([place] 5/325) 1 tab PO Q4H PRN PRN Reason: Acute Pain Al Hydroxide/Mg Hydroxide (Milk Of [place]) 30 ml PO BID [facility] Last Admin: 05/27/18 08:22 Dose: 30 ml Chlorhexidine Gluconate (Chlorhexidine 2% Cloth) 3 pack TOPICAL DAILY@0400 [facility] Stop: 06/01/18 03:59 Last Admin: 05/27/18 05:07 Dose: Not Given Chlorhexidine Gluconate (Chlorhexidine 2% Cloth) 3 pack TOPICAL DAILY@0400 PRN PRN Reason: Extra cloth needed Stop: 06/01/18 03:59 Docusate Sodium (Colace) 100 mg PO BID [facility] Last Admin: 05/27/18 08:22 Dose: 100 mg Enalaprilat (Vasotec Inj) 1.25 mg IV.PUSH Q8H PRN PRN Reason: Blood pressure 180/95 Potassium Chloride/Sodium Chloride (Ns + Kcl 20 Meq Inj) 1,000 mls @ 100 mls/ hr IV.CONT .Q10H [facility] Last Admin: 05/27/18 15:22 Dose: 100 mls/hr Morphine Sulfate (Morphine Inj) 2 mg IV.PUSH Q3H PRN PRN Reason: breakthrough pain Last Admin: 05/27/18 05:42 Dose: 2 mg Ondansetron HCl (Zofran Inj) 4 mg IV.PUSH Q6H PRN PRN Reason: NAUSEA OR VOMITING Last Admin: 05/26/18 21:14 Dose: 4 mg Pantoprazole Sodium (Protonix Inj) 40 mg IV.PUSH Q24H [facility] Last Admin: 05/27/18 08:21 Dose: 40 mg Sodium Chloride (Ns Flush) 2 ml IV.FLUSH UNSCH PRN PRN Reason: FLUSH AFTER USING IV ACCESS Last Admin: 05/27/18 08:22 Dose: 2 ml Allergies Allergy/AdvReac Type Severity Reaction Status Date / Time Penicillins Allergy Severe Itching, Verified 05/25/18 18:44 Generalized Home Medications Medication Instructions Recorded Confirmed Type No Known Home Medications 05/25/18 05/27/18 History Exam - Physical Examination Vital Signs / I&O: Vital Signs 05/26/18 19:30 05/26/18 20:00 05/26/18 20:26 Temperature 98.2 F Pulse Rate 80 84 71 Respiratory Rate 114 H 24 20 Blood Pressure 134/77 123/69 118/65 Pulse Oximetry 98 99 98 05/26/18 20:41 05/26/18 21:00 05/26/18 21:15 Temperature Pulse Rate 66 Respiratory Rate 23 21 23 Blood Pressure Pulse Oximetry 97 05/26/18 21:26 05/26/18 22:00 05/26/18 22:26 Temperature Pulse Rate 75 80 83 Respiratory Rate 25 H 19 18 Blood Pressure 126/77 119/70 Pulse Oximetry 99 98 98 05/26/18 23:00 05/26/18 23:26 05/27/18 00:00 Temperature 98.4 F Pulse Rate 71 65 71 Respiratory Rate 20 23 21 Blood Pressure 110/57 L Pulse Oximetry 97 97 97 05/27/18 00:26 05/27/18 01:00 05/27/18 01:26 Temperature Pulse Rate 65 66 64 Respiratory Rate 30 H 25 H 27 H Blood Pressure 108/57 L 102/51 L Pulse Oximetry 96 96 95 05/27/18 02:00 05/27/18 02:26 05/27/18 02:40 Temperature Pulse Rate 64 62 Respiratory Rate 23 20 24 Blood Pressure 108/54 L Pulse Oximetry 96 97 05/27/18 03:00 05/27/18 03:26 05/27/18 04:00 Temperature 98.1 F Pulse Rate 62 62 74 Respiratory Rate 20 20 32 H Blood Pressure 107/60 Pulse Oximetry 96 98 100 05/27/18 04:26 05/27/18 05:00 05/27/18 05:07 Temperature Pulse Rate 73 61 Respiratory Rate 24 20 24 Blood Pressure 116/64 Pulse Oximetry 100 97 05/27/18 05:26 05/27/18 06:00 05/27/18 06:26 Temperature Pulse Rate 66 58 L 71 Respiratory Rate 18 20 23 Blood Pressure 111/58 L 111/58 L Pulse Oximetry 98 98 99 05/27/18 07:00 05/27/18 07:26 05/27/18 07:44 Temperature Pulse Rate 58 L 59 L Respiratory Rate 27 H 30 H 18 Blood Pressure 106/58 L Pulse Oximetry 98 98 05/27/18 08:00 05/27/18 08:26 05/27/18 12:26 Temperature 98.8 F 98.7 F Pulse Rate 69 74 63 Respiratory Rate 22 20 15 Blood Pressure 111/64 103/53 L Pulse Oximetry 99 98 99 05/27/18 15:26 05/27/18 16:00 Temperature 98.6 F Pulse Rate 60 Respiratory Rate 13 Blood Pressure 101/58 L Pulse Oximetry 97 Intake & Output 05/27/18 05/27/18 05/28/18 06:59 18:59 06:59 Intake Total 1371 / 1371 1000 / 1000 Output Total 1065 / 1065 695 / 695 Balance 306 / 306 305 / 305 Weight 67.6 kg Intake: IV 891 / 891 1000 / 1000 NS + KCl 20 mEq Inj 1,000 ML @ 891 / 891 1000 / 1000 100 mls/hr IV.CONT .Q10H [facility] Rx #:[id number] Oral 480 / 480 Output: Urine 275 / 275 Urine Amount (Catheter) 975 / 975 350 / 350 Indwelling Urethral Catheter 975 / 975 350 / 350 Wound Drainage 90 / 90 70 / 70 # 1 Back 90 / 90 70 / 70 Other: Date of Last Bowel Movement 05/25/18 Intake & Output 05/25/18 05/26/18 05/27/18 05/28/18 06:59 06:59 06:59 06:59 Intake Total 0 / 0 2921 / 2921 1000 / 1000 Output Total 2735 / 2735 695 / 695 Balance 0 / 0 186 / 186 305 / 305 Weight 67.6 kg 67.6 kg General: No acute distress, Other (Awake and alert sitting up in bedside chair; cervical collar and SCDs in place) Respiratory: Lungs CTA, Non-labored respirations, BS equal Gastrointestinal: Positive bowel sounds, Non-distended, Non-tender Date of Last Bowel Movement: 05/25/18 Cardiovascular: Normal rate, No edema, Regular rhythm Skin: No rash Musculoskeletal: ROM (Within functional limits) Psychiatric: Cooperative, Appropriate mood & affect - Neurologic Orientation: oriented to: Self, Place, Time, Situation Neurologic: Cranial nerves (Intact 2 through 12), Speech (Intelligible) Motor: Right Upper Extremity (5/5), Left Upper Extremity (5/5), Right Lower Extremity (5/5), Left Lower Extremity (5/5) Babinski: Negative Clonus: Negative Results - Labs CBC & Chem 7: 05/28/18 05:44 05/28/18 05:44 Labs: Laboratory Results - last 24 hr 05/27/18 05/27/18 03:19 03:19 WBC 9.9 RBC 4.00 L Hgb 11.7 L D Hct 34.3 L MCV 85.7 MCH 29.3 MCHC 34.1 RDW 12.8 Plt Count 285 MPV 8.5 Neut % (Auto) 66.9 Lymph % (Auto) 18.8 [place] % (Auto) 14.0 H Eos % (Auto) 0.1 Baso % (Auto) 0.2 Neut # (Auto) 6.6 Lymph # (Auto) 1.9 [place] # (Auto) 1.4 H Eos # (Auto) 0.0 Baso # (Auto) 0.0 WBC Differential . Differential Comment Auto diff final Sodium 142 Potassium 4.2 Chloride 107 Carbon Dioxide 29.4 Anion Gap 6 BUN 9 Creatinine 1.04 Estimated GFR Greater than 89 Random Glucose 113 H Calcium 8.2 L D Total Bilirubin 0.5 AST 21 ALT 14 Alkaline Phosphatase 52 Total Protein 6.1 L D Albumin 3.4 D - Imaging Impressions Cervical Spine CT 05/26/18 00:00 CONCLUSION: 1. Posterior fixation as above. Interval reduction of anterolisthesis seen previously at C6-7. Jumped facet has also been reduced. Again seen are posterior element fractures at C6-7. Assessment and Plan (1) Fx C6 vertebra-closed Status: Acute Code(s): S12.500A - Unspecified displaced fracture of sixth cervical vertebra, initial encounter for closed fracture - Plan Assessment: 1. C6-C7 jumped facet S/P C4-T2 posterior spinal fusion and reduction of C6/7 listhesis 05/26/18 Recommendations: 1. PT mobilizing and SBA for transfer and ambulating 650 feet CG for safety 2. OT for ADL's and min mod assist for dressing. Continue to progress anticipating that patient should achieve modified independent level 3. Case management is addressing discharge planning and anticipate that patient will return to home with mother. Will likely benefit from short course of outpatient PT 4. Continue supervision for fall prevention 5. Will follow while hospitalized and at discharge Thank you for this consult. (1) Fx C6 vertebra-closed Qualifiers: Encounter type: initial encounter
[2018-05-28] MEDS: Chlorhexidine Gluconate 2% 1 Pack (2 Cloths) TOPICAL SCH (03:37)
[2018-05-28] MEDS: Morphine Inj 4 MG/ML Vial IV.PUSH PRN (04:56)
[2018-05-28 06:45] LABS: Baso % (Auto) 0.3 % (0.0-2.0); Eos % (Auto) 0.4 % (0.0-4.0); Hematocrit 37.3 % (39.0-51.0); Hemoglobin 12.4 gm/dL (13.0-17.0); Lymph # (Auto) 1.9 th/mm3 (1.0-4.8); Lymph % (Auto) 23.4 % (9.0-44.0); Mean Corpuscular HGB Conc 33.1 % (32.0-36.0); Mean Corpuscular Hemoglobin 29.1 pg (27.0-34.0); Mean Corpuscular Volume 87.8 fL (80.0-100.0); Mean Platelet Volume 8.7 fL (7.0-11.0); Mono % (Auto) 12.4 % (0.0-8.0); Neut % (Auto) 63.5 % (16.0-70.0); Platelet Count 266 th/mm3 (150-450); Red Blood Count 4.25 mil/mm3 (4.50-5.90); Red Cell Distribution Width 13.4 % (11.6-17.2); White Blood Count 7.9 th/mm3 (4.0-11.0)
[2018-05-28 06:53] LABS: Alanine Aminotransferase 15 U/L (9-52); Albumin 3.7 g/dL (3.4-5.0); Anion Gap 5 meq/L (5-15); Aspartate Aminotransferase 17 U/L (15-39); Blood Urea Nitrogen 7 mg/dL (7-18); Calcium 8.8 mg/dL (8.5-10.1); Carbon Dioxide 30.2 meq/L (21.0-32.0); Chloride 104 meq/L (98-107); Glomerular Filtration Rate Greater Than 89 mL/min (>89); Glucose,Random 92 mg/dL (74-106); Potassium 3.8 meq/L (3.5-5.1); Sodium 139 meq/L (136-145)
[2018-05-28 06:56] LABS: Alkaline Phosphatase 53 U/L (45-117); Total Protein 6.9 g/dL (6.4-8.2)
[2018-05-28] MEDS ORDERED: Morphine Inj 4 MG/ML Vial IV.PUSH PRN (07:24)
[2018-05-28] MEDS: Docusate Sodium 100 MG Capsule PO SCH ×3 (07:54→21:28)
[2018-05-28] MEDS: Pantoprazole Inj 40 MG Vial IV.PUSH SCH ×2 (07:54→08:02)
--- NOTE | 2018-05-28 10:08 | CT ---
EXAM DATE: 05/28/2018 9:31 AM EST AGE/SEX: 17 years / Male INDICATIONS: Trauma. Fractured C-Spine on trampoline 05/25/18. CLINICAL DATA: This is the patient's initial encounter. Patient reports that signs and symptoms have been present for 3 days and indicates a pain score of 10/10. MEDICAL/SURGICAL HISTORY: None. . Cervical spine surgery. RADIATION DOSE: 26.25 CTDI (mGy) COMPARISON: [facility] [place] [facility] [place] CERVICAL [place] W/O CONTRAST, 05/26/2018. . TECHNIQUE: Volumetric scanning was performed using a multirow detector CT scanner during bolus infus ion of 85 ml Omnipaque 350 (iohexol) nonionic water-soluble contrast as a single exam dose. The da ta was postprocessed with a variety of visualization algorithms including full-volume maximum intensi ty projection, multiplanar sliding thin-slab reformation, curved-planar reformation, and surface-rend ering techniques. Using automated exposure control and adjustment of the mA and/or kV according to p atient size, radiation dose was kept as low as reasonably achievable to obtain optimal diagnostic lashell lity images. DICOM format image data is available electronically for review and comparison. Percent stenosis is calculated using the diameter of the stenotic region over the diameter of the nor mal distal internal carotid artery. FINDINGS: Aortic Arch: There is a three-vessel origin of the great vessels from the aorta. No evidence of ost ial narrowing Right Carotid: The common carotid artery is within normal limits. The carotid bulb has a normal con figuration without ulceration or narrowing. The internal carotid artery lumen is smooth without sten osis. The external carotid artery is within normal limits. Left Carotid: The common carotid artery is within normal limits. The carotid bulb has a normal conf iguration without ulceration or narrowing. The internal carotid artery lumen is smooth without steno sis. The external carotid artery is within normal limits. Vertebrals: Left vertebral artery is dominant. There is normal opacification bilaterally without colt nosis, dissection, or occlusion. Other: The visualized surrounding structures demonstrate no significant interval change. There is pos terior spinal fixation extending from C4 through T2 bilaterally. There is a surgical drain in place j ust to the right of midline and overlying skin fam are present. There is a soft tissue and 17 he is gas, as expected and similar to the study from 2 days ago. The fractures involving the posterior e lements on the right at C6-C7 remain visualized and there has been bone grafting performed on the rig ht this region. CONCLUSION: 1. Normal evaluation of the neck arterial vasculature. 2. Stable postsurgical changes in the cervical spine and soft tissues. Electronically signed by: Rodrigo Sena MD Board Certified Radiologist 05/28/2018 10:07 AM EST
--- NOTE | 2018-05-28 12:28 | P.PN ---
Subjective Interval history: Trauma PTD: 2 Patient lying in bed. No distress noted. Asleep currently. Collaborated with bedside RN. Patient is completely neurologically intact. He has complained of headache and nausea. Dr. Ruiz, neurosurgeon has also been made aware. Physical Exam Vital signs: Vital Signs 05/27/18 15:26 05/27/18 16:00 05/27/18 18:00 Temperature 98.6 F Pulse Rate 60 71 Respiratory Rate 13 20 Blood Pressure 101/58 L Pulse Oximetry 97 98 05/27/18 18:26 05/27/18 19:26 05/27/18 20:00 Temperature 97.5 F L Pulse Rate 71 78 70 Respiratory Rate 19 18 14 Blood Pressure 99/62 L 105/69 Pulse Oximetry 98 95 100 05/27/18 20:26 05/27/18 21:38 05/27/18 23:07 Temperature 98.1 F Pulse Rate 68 67 Respiratory Rate 17 23 18 Blood Pressure 111/65 127/82 Pulse Oximetry 98 97 05/28/18 03:24 05/28/18 07:59 05/28/18 08:24 Temperature 98.3 F 97.7 F Pulse Rate 65 68 Respiratory Rate 18 17 18 Blood Pressure 143/67 H 123/67 Pulse Oximetry 98 99 Intake & Output 05/27/18 05/28/18 05/28/18 18:59 06:59 18:59 Intake Total 1000 / 1000 1360 / 1360 Output Total 695 / 695 2160 / 2160 Balance 305 / 305 -800 / -800 Weight 67.6 kg 67.6 kg Intake: IV 1000 / 1000 1000 / 1000 NS + KCl 20 mEq Inj 1,000 ML @ 1000 / 1000 1000 / 1000 100 mls/hr IV.CONT .Q10H [facility] Rx #:[id number] Oral 360 / 360 Output: Urine 275 / 275 2100 / 2100 Urine Amount (Catheter) 350 / 350 Indwelling Urethral Catheter 350 / 350 Wound Drainage 70 / 70 60 / 60 # 1 Back 70 / 70 60 / 60 Other: Date of Last Bowel Movement 05/25/18 05/25/18 # Bowel Movements 0 Narrative: GENERAL: This is a 17-year-old male lying in bed. No distress noted. SKIN: Warm and dry. HEAD: Atraumatic. Normocephalic. EYES: PERRLA ENT: No nasal bleeding or discharge. Mucous membranes pink and moist. NECK: Mifflin J collar in place. Trachea midline. No JVD. SERGIO in place to bulb suction. CARDIOVASCULAR: Regular rate and rhythm. RESPIRATORY: No accessory muscle use. Lungs are clear to auscultation. Breath sounds equal bilaterally. No distress or dyspnea. GASTROINTESTINAL: BS + x 4 quads. Abdomen soft, non-tender, nondistended. MUSCULOSKELETAL: Extremities without cyanosis, or edema. + peripheral pulses x 4 extremities. Warm with good capillary refill and sensation. MAEW. NEUROLOGICAL: Asleep at present. - Urinary Catheter Management Indwelling Urethral Catheter Cath placed during this visit: yes, but has since been removed by the nurse Reason for continuing: Not indwelling catheter Insertion date: 05/26/18 Insertion time: 08:20 Removal date: 05/27/18 Removal time: 11:30 Results - Labs CBC & Chem 7: 05/28/18 05:44 05/28/18 05:44 Laboratory Results - last 24 hr 05/28/18 05/28/18 05:44 05:44 WBC 7.9 RBC 4.25 L Hgb 12.4 L Hct 37.3 L MCV 87.8 MCH 29.1 MCHC 33.1 RDW 13.4 Plt Count 266 MPV 8.7 Neut % (Auto) 63.5 Lymph % (Auto) 23.4 [place] % (Auto) 12.4 H Eos % (Auto) 0.4 Baso % (Auto) 0.3 Neut # (Auto) 5.0 Lymph # (Auto) 1.9 [place] # (Auto) 1.0 H Eos # (Auto) 0.0 Baso # (Auto) 0.0 WBC Differential . Differential Comment Auto diff final Sodium 139 Potassium 3.8 Chloride 104 Carbon Dioxide 30.2 Anion Gap 5 BUN 7 Creatinine 0.81 Estimated GFR Greater than 89 Random Glucose 92 Calcium 8.8 Total Bilirubin 0.5 AST 17 ALT 15 Alkaline Phosphatase 53 Total Protein 6.9 D Albumin 3.7 - Imaging Impressions Neck CTA 05/28/18 00:00 CONCLUSION: 1. Normal evaluation of the neck arterial vasculature. 2. Stable postsurgical changes in the cervical spine and soft tissues. 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 He was doing back flips on a trampoline, and landed on his head. He felt a pop/crack with tingling and burning down his right arm. INJURIES: C6 / C7 jumped facet with fracture PMHx: Smoker. Knee surgery. EtOH. Daily marijuana Procedures: 05/26: C4-T2 posterior spinal fusion. Reduction of C6/C7 listhesis Consults: Neurosurgery. Rehab medicine. Case management. Diet: Regular diet. Tolerating po diet. Encourage good po intake with each meal. Pulmonary: Encourage good pulmonary toileting. IS at bedside and pt encouraged to use. Rationale for use explained to patient, and verbalized understanding. PAIN Management: [place] 5-7.5 mg q 4h. Morphine 2 mg q 6h. Motrin 600 mg q 8h. Activity: OOB. PT and OT ordered. Mifflin J collar at all times. GI prophylaxis: Protonix 40 mg IV. Added Reglan 5 mg every 8 hours as needed for nausea/vomiting Bowel regimen: Colace. MOM. LBM: 0. Intensified with bisacodyl p.o. x1 dose today DVT prophylaxis: Mechanical VTE with SCDs. Chemical management TBD. DC Planning: Case management consulted for assistance with final discharge disposition. Plan for discharge tomorrow, if SERGIO neck can be removed. Emotional support provided to patient at bedside and plan of care discussed. Discussed with RN at bedside. Discussed pt condition and plan of care with collaborating trauma surgeon. Patient is hemodynamically stable and being managed on the med/surg floor. The trauma team will round each day, and evaluate plan of care on a daily basis. C6 / C7 jumped facet with fracture Neurosurgery consulted and assisting in management and care Supportive care 05/26: C4-T2 posterior spinal fusion. Reduction of C6/C7 listhesis Serial neuro checks Pain management Antibiotics per neurosurgery SERGIO drain to neck to bulb suction -increased output overnight, unable to DC today Encourage out of bed PT and OT ordered Mifflin J collar at all times Bowel regimen SCDs for DVT prophylaxis - Attending Attestation Patient is stable from general trauma standpoint he is neurologically intact his CTA of the neck vessels is negative, discharge plan is tomorrow after his drain is being removed by neurosurgeon (2) Fx C6 vertebra-closed Qualifiers: Encounter type: initial encounter
[2018-05-28] MEDS: Ibuprofen 600 MG Tablet PO SCH ×2 (13:02→21:28)
--- NOTE | 2018-05-28 16:18 | P.PNNS ---
Subjective Interval history: Doing well, somewhat painful Physical Exam Vital signs: Vital Signs 05/27/18 18:00 05/27/18 18:26 05/27/18 19:26 Temperature Pulse Rate 71 71 78 Respiratory Rate 20 19 18 Blood Pressure 99/62 L 105/69 Pulse Oximetry 98 98 95 05/27/18 20:00 05/27/18 20:26 05/27/18 21:38 Temperature 97.5 F L Pulse Rate 70 68 Respiratory Rate 14 17 23 Blood Pressure 111/65 Pulse Oximetry 100 98 05/27/18 23:07 05/28/18 03:24 05/28/18 07:59 Temperature 98.1 F 98.3 F 97.7 F Pulse Rate 67 65 68 Respiratory Rate 18 18 17 Blood Pressure 127/82 143/67 H 123/67 Pulse Oximetry 97 98 99 05/28/18 08:24 05/28/18 11:30 05/28/18 13:32 Temperature 98.1 F Pulse Rate 67 Respiratory Rate 18 18 18 Blood Pressure 118/67 Pulse Oximetry 97 05/28/18 13:33 Temperature Pulse Rate Respiratory Rate 18 Blood Pressure Pulse Oximetry Intake & Output 05/27/18 05/28/18 05/28/18 18:59 06:59 18:59 Intake Total 1000 / 1000 1360 / 1360 Output Total 695 / 695 2160 / 2160 Balance 305 / 305 -800 / -800 Weight 67.6 kg 67.6 kg Intake: IV 1000 / 1000 1000 / 1000 NS + KCl 20 mEq Inj 1,000 ML @ 1000 / 1000 1000 / 1000 100 mls/hr IV.CONT .Q10H [facility] Rx #:[id number] Oral 360 / 360 Output: Urine 275 / 275 2100 / 2100 Urine Amount (Catheter) 350 / 350 Indwelling Urethral Catheter 350 / 350 Wound Drainage 70 / 70 60 / 60 # 1 Back 70 / 70 60 / 60 Other: Date of Last Bowel Movement 05/25/18 05/25/18 # Bowel Movements 0 - Urinary Catheter Management Indwelling Urethral Catheter Cath placed during this visit: yes, but has since been removed by the nurse Reason for continuing: Not indwelling catheter Insertion date: 05/26/18 Insertion time: 08:20 Removal date: 05/27/18 Removal time: 11:30 Assessment and Plan - Plan POD#2 17yoM with C6/7 jumped facet unilateral (right) with fracture and rotatory subluxation. Now, status post C4-T2 fusion for repair of C6/C7 facet jump injury. Extubated following surgery and airway wide cont. SERGIO drain one more day, d/c drain and patient tomorrow Regular diet PT/OT Discharge planning
--- NOTE | 2018-05-28 17:23 | P.PNREH ---
Subjective Interval history: Patient awake and alert. Reporting nausea. Nursing has provided milk of magnesia for constipation. Denies any abdominal pain. Denies any shortness of breath. Reports that he will be discharged home to his mother's home Exam - Physical Examination Vital Signs / I&O: Vital Signs 05/27/18 18:00 05/27/18 18:26 05/27/18 19:26 Temperature Pulse Rate 71 71 78 Respiratory Rate 20 19 18 Blood Pressure 99/62 L 105/69 Pulse Oximetry 98 98 95 05/27/18 20:00 05/27/18 20:26 05/27/18 21:38 Temperature 97.5 F L Pulse Rate 70 68 Respiratory Rate 14 17 23 Blood Pressure 111/65 Pulse Oximetry 100 98 05/27/18 23:07 05/28/18 03:24 05/28/18 07:59 Temperature 98.1 F 98.3 F 97.7 F Pulse Rate 67 65 68 Respiratory Rate 18 18 17 Blood Pressure 127/82 143/67 H 123/67 Pulse Oximetry 97 98 99 05/28/18 08:24 05/28/18 11:30 05/28/18 13:32 Temperature 98.1 F Pulse Rate 67 Respiratory Rate 18 18 18 Blood Pressure 118/67 Pulse Oximetry 97 05/28/18 13:33 05/28/18 16:36 Temperature 97.8 F Pulse Rate 86 Respiratory Rate 18 18 Blood Pressure 123/67 Pulse Oximetry 100 Intake & Output 05/27/18 05/28/18 05/28/18 18:59 06:59 18:59 Intake Total 1000 / 1000 1360 / 1360 Output Total 695 / 695 2160 / 2160 Balance 305 / 305 -800 / -800 Weight 67.6 kg 67.6 kg Intake: IV 1000 / 1000 1000 / 1000 NS + KCl 20 mEq Inj 1,000 ML @ 1000 / 1000 1000 / 1000 100 mls/hr IV.CONT .Q10H YVONNE Rx #:[id number] Oral 360 / 360 Output: Urine 275 / 275 2100 / 2100 Urine Amount (Catheter) 350 / 350 Indwelling Urethral Catheter 350 / 350 Wound Drainage 70 / 70 60 / 60 # 1 Back 70 / 70 60 / 60 Other: Date of Last Bowel Movement 05/25/18 05/25/18 # Bowel Movements 0 Intake & Output 05/26/18 05/27/18 05/28/1819 06:59 06:59 06:59 06:59 Intake Total 0 / 0 2921 / 2921 2360 / 2360 Output Total 2735 / 2735 2855 / 2855 Balance 0 / 0 186 / 186 -495 / -495 Weight 67.6 kg 67.6 kg General: No acute distress, Other (Awake and alert; answers questions appropriately and follows commands well) Date of Last Bowel Movement: 05/25/18 Cardiovascular: No edema Skin: No rash Musculoskeletal: ROM (Within functional limits) Psychiatric: Cooperative, Appropriate mood & affect - Neurologic Orientation: oriented to: Self, Situation Neurologic: Other (Bilateral upper and lower extremity strength 5/5) Objective Laboratory Results - last 24 hr 05/28/18 05/28/18 05:44 05:44 WBC 7.9 RBC 4.25 L Hgb 12.4 L Hct 37.3 L MCV 87.8 MCH 29.1 MCHC 33.1 RDW 13.4 Plt Count 266 MPV 8.7 Neut % (Auto) 63.5 Lymph % (Auto) 23.4 Fleming % (Auto) 12.4 H Eos % (Auto) 0.4 Baso % (Auto) 0.3 Neut # (Auto) 5.0 Lymph # (Auto) 1.9 Fleming # (Auto) 1.0 H Eos # (Auto) 0.0 Baso # (Auto) 0.0 WBC Differential . Differential Comment Auto diff final Sodium 139 Potassium 3.8 Chloride 104 Carbon Dioxide 30.2 Anion Gap 5 BUN 7 Creatinine 0.81 Estimated GFR Greater than 89 Random Glucose 92 Calcium 8.8 Total Bilirubin 0.5 AST 17 ALT 15 Alkaline Phosphatase 53 Total Protein 6.9 D Albumin 3.7 Assessment and Plan (1) Fx C6 vertebra-closed Status: Acute Code(s): S12.500A - Unspecified displaced fracture of sixth cervical vertebra, initial encounter for closed fracture Qualifiers: Encounter type: initial encounter - Plan Assessment: 1. C6-C7 jumped facet S/P C4-T2 posterior spinal fusion and reduction of C6/7 listhesis 05/26/18 Recommendations: 1. PT mobilizing and SBA for transfer transfers and contact-guard for gait 2. OT for ADL's and min mod assist for dressing. Continue to progress anticipating that patient should achieve modified independent level 3. Case management is addressing discharge planning and anticipate that patient will return to home with mother. Will likely benefit from short course of outpatient PT 4. Continue supervision for fall prevention 5. Will follow while hospitalized and at discharge
[2018-05-29] MEDS: Ibuprofen 600 MG Tablet PO SCH ×2 (06:41→13:58)
[2018-05-29 07:04] VITALS: RESP 18
[2018-05-29] MEDS: Pantoprazole Inj 40 MG Vial IV.PUSH SCH (08:40)
[2018-05-29] MEDS: Docusate Sodium 100 MG Capsule PO SCH (08:40)
--- NOTE | 2018-05-29 11:19 | P.PNNS ---
Subjective Interval history: Doing well Physical Exam Vital signs: Vital Signs 05/28/18 11:30 05/28/18 13:32 05/28/18 13:33 Temperature 98.1 F Pulse Rate 67 Respiratory Rate 18 18 18 Blood Pressure 118/67 Pulse Oximetry 97 05/28/18 16:36 05/28/18 18:41 05/28/18 19:49 Temperature 97.8 F 98.1 F Pulse Rate 86 75 Respiratory Rate 18 16 18 Blood Pressure 123/67 114/59 L Pulse Oximetry 100 96 05/28/18 22:12 05/28/18 22:47 05/28/18 23:09 Temperature 97.8 F Pulse Rate 68 Respiratory Rate 18 18 18 Blood Pressure 111/63 Pulse Oximetry 97 05/28/18 23:54 05/29/18 07:03 05/29/18 07:40 Temperature 98.3 F Pulse Rate 77 Respiratory Rate 17 18 18 Blood Pressure 122/66 Pulse Oximetry 97 Intake & Output 05/28/18 05/29/18 05/29/18 18:59 06:59 18:59 Intake Total 480 / 480 Output Total 60 / 60 50 / 50 Balance -60 / -60 430 / 430 Weight 67.6 kg Intake: Oral 480 / 480 Output: Wound Drainage 60 / 60 50 / 50 # 1 Back 60 / 60 50 / 50 Other: # Voids 1 Date of Last Bowel Movement 05/25/18 05/28/18 05/28/18 # Bowel Movements 0 Narrative: A&O x 3 CN II-XII intact Motor 5/5 UE/LE Numb d2 right hand per baseline Incision c/d/i -- drain removed this AM - Urinary Catheter Management Indwelling Urethral Catheter Cath placed during this visit: yes, but has since been removed by the nurse Reason for continuing: Not indwelling catheter Insertion date: 05/26/18 Insertion time: 08:20 Removal date: 05/27/18 Removal time: 11:30 Assessment and Plan - Plan POD#3 17yoM with C6/7 jumped facet unilateral (right) with fracture and rotatory subluxation. D/c home today Keep incision covered until fam out-- May change dressing in 2-3 days [place] J collar all the time, may switch to Martine for showers [place] out in 2 weeks -- Jun 09, [facility]surgery Clinic[facility]
--- NOTE | 2018-05-29 14:53 | P.DS ---
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 He was doing back flips on a trampoline, and landed on his head. He felt a pop/crack with tingling and burning down his right arm. INJURIES: C6 / C7 jumped facet with fracture PMHx: Smoker. Knee surgery. EtOH. Daily marijuana Procedures: 05/26: C4-T2 posterior spinal fusion. Reduction of C6/C7 listhesis Consults: Neurosurgery. Rehab medicine. Case management. The patient is now tolerating a po diet. Eating and drinking well. Pain is being managed well with PO pain medications, and patient is being a provided with a script for pain meds upon discharge. [This patient will be prescribed narcotic pain medications due to his traumatic injuries. The patient has a normal physiological response to severe traumatic injuries and surgery. He will need acute pain management with prescribed narcotic treatment. The [employer] prescription drug monitoring program database has been queried.] (NO driving while taking narcotic pain medication enforced to patient.) Pt is having regular bowel movements, and have recommended to patient to continue with stool softeners while taking narcotic pain medications to prevent constipation. Pt has been participating in PT and OT while admitted at [facility] and has been ambulating with their assistance and independently. No home PT needs All follow up appointments have been provided and discussed with the patient. It is recommended that the patient keeps all his follow up appointments for continued recovery. Patient's condition and plan of care discussed with collaborating trauma surgeon. He is agreeable to plan for discharge today. Therefore, the patient is stable to be safely discharged home from a trauma surgery standpoint. Thank you for allowing us to participate in his care. We wish Yasmany the best in his recovery. C6 / C7 jumped facet with fracture Neurosurgery consulted and assisting in management and care Supportive care 05/26: C4-T2 posterior spinal fusion. Reduction of C6/C7 listhesis 05/28: CTA neck -negative Serial neuro checks Pain management Antibiotics per neurosurgery SERGIO drain DC'd today [facility] out of bed PT and OT ordered [place] J collar at all times Bowel regimen SCDs for DVT prophylaxis Follow-up with neurosurgery outpatient - Time Spent with Patient Total time spent providing and/or coordinating discharge services: Greater than 30 minutes - Quality: VTE Deep Vein Thrombosis/Pulmonary Embolism Present on Admission: No Exam Vital signs: Vital Signs 05/28/18 16:36 05/28/18 18:41 05/28/18 19:49 Temperature 97.8 F 98.1 F Pulse Rate 86 75 Respiratory Rate 18 16 18 Blood Pressure 123/67 114/59 L Pulse Oximetry 100 96 05/28/18 22:12 05/28/18 22:47 05/28/18 23:09 Temperature 97.8 F Pulse Rate 68 Respiratory Rate 18 18 18 Blood Pressure 111/63 Pulse Oximetry 97 05/28/18 23:54 05/29/18 07:03 05/29/18 07:40 Temperature 98.3 F Pulse Rate 77 Respiratory Rate 17 18 18 Blood Pressure 122/66 Pulse Oximetry 97 05/29/18 11:30 05/29/18 12:12 05/29/18 14:28 Temperature 98.2 F Pulse Rate 74 Respiratory Rate 18 18 18 Blood Pressure 130/66 Pulse Oximetry 98 Intake & Output 05/28/18 05/29/18 05/29/18 18:59 06:59 18:59 Intake Total 480 / 480 Output Total 60 / 60 50 / 50 Balance -60 / -60 430 / 430 Weight 67.6 kg Intake: Oral 480 / 480 Output: Wound Drainage 60 / 60 50 / 50 # 1 Back 60 / 60 50 / 50 Other: # Voids 1 Date of Last Bowel Movement 05/25/18 05/28/18 05/28/18 # Bowel Movements 0 Narrative: GENERAL: This is a 17-year-old male walking about the unit. No distress noted. SKIN: Warm and dry. HEAD: Atraumatic. Normocephalic. EYES: PERRLA ENT: No nasal bleeding or discharge. Mucous membranes pink and moist. NECK: [place] J collar in place. Trachea midline. No JVD. SERGIO in place to bulb suction. CARDIOVASCULAR: Regular rate and rhythm. RESPIRATORY: No accessory muscle use. Lungs are clear to auscultation. Breath sounds equal bilaterally. No distress or dyspnea. GASTROINTESTINAL: BS + x 4 quads. Abdomen soft, non-tender, nondistended. MUSCULOSKELETAL: Extremities without cyanosis, or edema. + peripheral pulses x 4 extremities. Warm with good capillary refill and sensation. MAEW. NEUROLOGICAL: Awake and alert. Normal speech and pattern. Results Procedures completed during hospitalization: . - Impressions ITS Impressions Cervical Spine CT 05/26/18 00:00 CONCLUSION: 1. Posterior fixation as above. Interval reduction of anterolisthesis seen previously at C6-7. Jumped facet has also been reduced. Again seen are posterior element fractures at C6-7. Cervical Spine X-Ray 05/26/18 00:00 CONCLUSION: Fluoroscopic images during posterior fusion C4 extending inferiorly into the upper thoracic spine at T2 level. Neck CTA 05/28/18 00:00 CONCLUSION: 1. Normal evaluation of the neck arterial vasculature. 2. Stable postsurgical changes in the cervical spine and soft tissues. Discharge Plan - Discharge Disposition Patient Disposition: Discharge Home - Discharge Condition Condition: Stable - Discharge Order Discharge Orders: Discharge Order (Routine); Ordered 05/29/18 Ordered By: Sharron Sosa - Discharge Details Anticipated Discharge Date: 05/29/18 - Physicians Team Primary Care Provider: UNKNOWN, Attending Provider: Ayaz Patton Other Providers: Ayaz Patton MD ; Jonny Melton MD ; [facility] ; Jose Jiang MD ; Sharron Sosa ARNP ; Charli Fuller MD ; Angela Boyd MD ; Dorothy Sanderson ARNP ; Ethel Yo MD ; Haritha Hood MD - Rxs /Orders / Referrals /Forms Prescriptions: New docusate sodium [DOK] 100 mg Capsule 100 mg PO BID RF: 0 hydrocodone-acetaminophen 7.5-325 mg Tablet 1 tab PO Q4H PRN (Reason: Acute Pain) 3 Days Qty: 18 RF: 0 ibuprofen 600 mg Tablet 600 mg PO Q8HR RF: 0 magnesium hydroxide [Milk of Magnesia] 400 mg/5 mL Suspension 30 ml PO BID RF: 0 Referrals: Haritha Hood MD [[facility] Re[facility]] - See Instructions (Follow-up in rehab medicine clinic as needed in 4-6 weeks) Bo Ruiz MD [Physician] - See Instructions (f/u in 2 weeks) UNKNOWN, [Primary Care Provider] - See Instructions (f/u in 1 week) - Discharge Instructions Patient Printed Instructions: Laminectomy (DC), Fall Prevention (DC), [place] J Collar (DC), Deep Vein Thrombosis Prevention (DC) Additional Instructions: NO DRIVING while taking narcotic pain meds NO DRIVING until cleared by neurosurgery [place] J collar at all times for 6 weeks soft collar while showering f/u in 2 weeks with neurosurgery for staple removal wash surgical wound daily with soap and water, pat dry and apply dry gauze - Post Discharge Care Plan Care Plan Goals: Your Health Problems: Goals to Promote Your Health: * To prevent worsening of your condition * To maintain your health at the optimal level Directions to Meet Your Goals: * Take your medications as prescribed * Follow your dietary instruction * Follow activity as directed * Keep your appointments as scheduled * Take your immunizations and boosters as scheduled * If your symptoms worsen call your PCP * If no PCP go to Urgent Care or Emergency Room Smoking is dangerous to your health. Avoid second hand smoke. You may reach the 24-hour crisis hotline for domestic abuse at .
[2018-05-29 16:37] VITALS: BP 130/66; PULSE 74; TEMP 98.2; O2SAT 98
== END 2018-05-29 21:30 | disposition home or self-care (01) | DRG 520 ==
LOC: NEDDLT 05-26 04:25 → N03 05-26 04:35 → N06 05-27 23:06
PROVIDERS: ADMIT Surgery; ATTEND Surgery
CPT/HCPCS: 70498; 71101; 72040; 72125; 76000; 80053; 85025; 85610; 85730; 86850; 86900; 86901; 87641; 90774; 90775; 90784; 94150; 96374; 96375; 97116; 97162; 97166; 97535; 99284; 99285; C1713; C8952; C9113; J0131; J0690; J1170; J2250; J2270; J2405; J2704; J3010; J3480; L0150; L0172; Q9967